=== PATIENT | female | born 1985 ===

== ENCOUNTER 2019-03-01 18:04 | Emergency (ER) | payer SELFPAY ==
[2019-03-01 18:04] VITALS: BMI 41.1
--- NOTE | 2019-03-01 20:30 | ED PDOC ---
HPI: Female Pain Time Seen by Provider: 03/01/19 20:06 Chief Complaint (Nursing): Female Genitourinary Chief Complaint (Provider): : vaginal bleeding, pain History Per: Patient History/Exam Limitations: no limitations Onset/Duration Of Symptoms: Hrs (4) Current Symptoms Are (Timing): Still Present Quality Of Discomfort: "Pain" Additional Complaint(s): 33 y/o female, approximately 12 weeks , presents for evaluation of vagin al bleeding x 4 hours. Patient reports diarrhea with subjective fevers last night; which since improved. Patient states she noticed blood on tissue after urinating around 16:00 which continued up until now. Associated suprapubic pain. Denies fever, nausea/vomiting, chest pain, shortness of breath, palpitations, urinary symptoms. Last Menstral Period: 11/20/18 : 4 Para: 3 Miscarriage: 0 Past Medical History Reviewed: Historical Data, Nursing Documentation, Vital Signs Vital Signs: Last Vital Signs Temp 98.6 F 03/01/19 18:24 Pulse 82 03/01/19 18:24 Resp 18 03/01/19 18:24 BP 130/81 03/01/19 18:24 Pulse Ox 99 03/01/19 18:24 - Medical History PMH: No Chronic Diseases Denies: Depression, Diabetes, HTN - Surgical History Surgical History: - Family History Family History: States: Unknown Family Hx - Immunization History Hx Tetanus Toxoid Vaccination: No Hx Influenza Vaccination: No Hx Pneumococcal Vaccination: No - Home Medications Home Medications: Ambulatory Orders Medication Instructions Recorded Ibuprofen [Motrin Tab] 600 mg PO Q4 PRN #30 tab 07/17/17 oxyCODONE/Acetaminophen [Percocet 1 tab PO Q6H PRN #20 tab 07/17/17 5/325 mg Tab] - Allergies Allergies/Adverse Reactions: Allergies Allergy/AdvReac Type Severity Reaction Status Date / Time No Known Allergies Allergy Verified 03/01/19 18:24 Review of Systems ROS Statement: Except As Marked, All Systems Reviewed And Found Negative Genitourinary Female: Positive for: Vaginal Bleeding, Pelvic Pain Physical Exam - Reviewed Nursing Documentation Reviewed: Yes Vital Signs Reviewed: Yes - Physical Exam Appears: Positive for: Well, Non-toxic, No Acute Distress Head Exam: Positive for: ATRAUMATIC, NORMAL INSPECTION, NORMOCEPHALIC Skin: Positive for: Normal Color Eye Exam: Positive for: Normal appearance ENT: Positive for: Normal ENT Inspection Cardiovascular/Chest: Positive for: Regular Rate, Rhythm Respiratory: Positive for: Normal Breath Sounds Gastrointestinal/Abdominal: Positive for: Bowel Sounds, Soft, Tenderness (suprapubic) Pelvic Exam: Positive for: External Exam Normal, No Cerv. Motion Tender, Active Bleeding (+ large clots), Other (exam trim machine operator Aisha Urena RN). Negative for: Tender Adnexa, Tender Uterus Back: Positive for: Normal Inspection Extremity: Positive for: Normal ROM Neurological/Psych: Positive for: Awake, Alert, Oriented (x3) - Laboratory Results Result Diagrams: 03/01/19 20:52 03/01/19 20:52 - ECG O2 Sat by Pulse Oximetry: 99 - Progress ED Course And Treament: -upreg -udip -cbc -cmp -beta hcg -OB TV u/s -PO tylenol 21:35 RN called public relations writer to bathroom; patient actively passing fetus. Patient states pain has now improved History Pain/vaginal bleeding. Comparison None available. Findings Uterus No gestational sac, yolk sac, pole or cardiac activity. Uterus measures 16.4 x 6.5 x 9.4 cm. No mass. Cervix Long and closed measuring 4.7 cm. No cervical abnormality seen. Right Ovary Not seen. Left Ovary Measures 4.4 x 3 x 5.9 cm. No mass. Normal flow. Cyst measures 4 x 2.3 x 4.1 cm. Free Fluid None. Other Findings None. Impression 1. No evidence of IUP. 2. Left ovarian cyst. Patient resting comfortably on re-eval; states pain improved Patient educated on findings, discharged with instructions to follow up with Greenskeeper Supervisor within 1 week Advised Tylenol/Ibuprofen PRN pain Return precautions given Disposition - Clinical Impression Clinical Impression: Left ovarian cyst, Miscarriage - Patient ED Disposition Is Patient to be Admitted: No Counseled Patient/Family Regarding: Studies Performed, Diagnosis, Need For Followup - Disposition Disposition: Routine/Home Disposition Time: 23:20 Condition: STABLE Instructions: Dealing With Miscarriage, Miscarriage, Ovarian Cysts Forms: [facility] ED School/Work Excuse
[2019-03-01 20:57] LABS: BASO % 0.3 % (0.0-2.0); EOS # 0.2 K/uL (0.0-0.7); EOS % 1.5 % (0.0-4.0); HEMOGLOBIN 12.1 g/dL (12.0-16.0); LYMPH # 3.2 K/uL (1.0-4.3); LYMPH % 27.1 % (20.0-40.0); MEAN CORPUSCULAR HEMOGLOBIN 26.7 pg (27.0-31.0); MEAN CORPUSCULAR HGB CONC 32.6 g/dL (33.0-37.0); MEAN PLATELET VOLUME 8.5 fl (7.2-11.7); MONO % 8.3 % (0.0-10.0); NEUT # 7.5 K/uL (1.8-7.0); NEUT % 62.8 % (50.0-75.0); RBC 4.54 Mil/uL (3.80-5.20); RED CELL DISTRIBUTION WIDTH 14.6 % (11.5-14.5); WHITE BLOOD COUNT 11.9 K/uL (4.8-10.8)
[2019-03-01] MEDS ORDERED: Sodium Chloride 0.9% 1,000 ML IV STA (21:00)
[2019-03-01 21:10] LABS: ALBUMIN 3.9 g/dL (3.5-5.0); ALT/SGPT 18 U/L (9-52); AST/SGOT 20 U/L (14-36); BLOOD UREA NITROGEN 6 mg/dl (7-17); CALCIUM 8.9 mg/dL (8.4-10.2); GFR NON-AFRICAN AMERICAN > 60
[2019-03-01 22:56] VITALS: RESP 16
[2019-03-01 23:50] VITALS: BP 126/75; PULSE 78; TEMP 98.5; O2SAT 100
--- NOTE | 2019-03-02 12:03 | US ---
Date of service: 03/01/2019 HISTORY: : bleeding, pain COMPARISON: None available. TECHNIQUE: FINDINGS: UTERUS: Measures 16.4 x 6.5 x 9.4 cm. Normal in size and appearance. No fibroid or other mass lesion seen. ENDOMETRIUM: The central endometrial echo complex is heterogeneous. There is evidence of homogeneously isoechoic structure along the anterior wall. CERVIX: No cervical abnormality identified. RIGHT OVARY: Not visualized. LEFT OVARY: Measures 4.4 x 3.0 x 5.9 cm. No solid mass. Normal flow. There is a 4.0 x 2.3 x 4.1 cm simple cyst. FREE FLUID: No significant free fluid noted. OTHER FINDINGS: None. IMPRESSION: 1. No evidence of intrauterine gestational sac. Heterogeneous central endometrial echo complex and presumable placenta along the anterior wall. Clinical follow-up is advised. 2. 4.1 cm simple cyst in the left ovary. A preliminary report was provided by [employer] The final report is tagged to the PA review folder.
== END 2019-03-01 23:50 | disposition home or self-care (01) ==
LOC: H.ER 18:04
DX: O03.9 Complete or unspecified spontaneous abortion without complication (principal); Z3A.13 13 weeks gestation of pregnancy; N83.202 Unspecified ovarian cyst, left side
CPT/HCPCS: 76817; 80053; 81025; 84702; 85025; 88305; 96360; 99284; J7030

== ENCOUNTER 2019-03-04 01:33 | Emergency (ER) | payer SELFPAY ==
[2019-03-04 01:33] VITALS: BMI 41.1
[2019-03-04 01:42] VITALS: BP 139/85; PULSE 97; RESP 16; TEMP 98.5; O2SAT 100
[2019-03-04 03:02] LABS: BASO % 0.4 % (0.0-2.0); EOS # 0.1 K/uL (0.0-0.7); HEMOGLOBIN 10.3 g/dL (12.0-16.0); LYMPH # 1.6 K/uL (1.0-4.3); LYMPH % 17.6 % (20.0-40.0); MEAN CELL VOLUME 81.8 fl (81.0-99.0); MEAN CORPUSCULAR HEMOGLOBIN 27.6 pg (27.0-31.0); MEAN CORPUSCULAR HGB CONC 33.7 g/dL (33.0-37.0); MEAN PLATELET VOLUME 8.3 fl (7.2-11.7); MONO # 0.6 K/uL (0.0-0.8); MONO % 6.7 % (0.0-10.0); NEUT # 6.7 K/uL (1.8-7.0); NEUT % 74.3 % (50.0-75.0); NRBC % 0.1 % (0.0-0.0); RBC 3.72 Mil/uL (3.80-5.20); RED CELL DISTRIBUTION WIDTH 14.2 % (11.5-14.5); WHITE BLOOD COUNT 9.1 K/uL (4.8-10.8)
--- NOTE | 2019-03-04 03:12 | ED PDOC ---
HPI: Psych/Substance Abuse Time Seen by Provider: 03/04/19 01:44 Chief Complaint (Nursing): Psychiatric Evaluation Chief Complaint (Provider): Anxiety, depression History Per: Patient, Family () History/Exam Limitations: no limitations Onset/Duration Of Symptoms: Days (2) Current Symptoms Are (Timing): Still Present Associated Symptoms: Anxiety, Depression. denies: Suicidal Thoughts, Suicidal Plan Additional Complaint(s): 33yo female, with no past medical history, brought to ER by due to anxiety and depression for the past 2 days. Patient was diagnosed with a spontaneous miscarriage 2 days ago, and since then she feels like she has been unable to sleep, has been increasingly depressed. Per , patient is ac utely panicked, and felt as if "in alternate reality." Patient otherwise denies any suicidal, homicidal ideation, no hallucinations as well. No other medical complaints. PMD: None provided Past Medical History Reviewed: Historical Data, Nursing Documentation, Vital Signs Vital Signs: Last Vital Signs Temp 98.5 F 03/04/19 01:37 Pulse 97 H 03/04/19 01:37 Resp 16 03/04/19 01:37 BP 139/85 03/04/19 01:37 Pulse Ox 100 03/04/19 01:37 - Medical History PMH: No Chronic Diseases Denies: Depression, Diabetes, HTN - Surgical History Surgical History: - Family History Family History: States: No Known Family Hx - Social History Current smoker - smoking cessation education provided: No Alcohol: None Drugs: Denies - Immunization History Hx Tetanus Toxoid Vaccination: No Hx Influenza Vaccination: No Hx Pneumococcal Vaccination: No - Home Medications Home Medications: Ambulatory Orders Medication Instructions Recorded Ibuprofen [Motrin Tab] 600 mg PO Q4 PRN #30 tab 07/17/17 oxyCODONE/Acetaminophen [Percocet 1 tab PO Q6H PRN #20 tab 07/17/17 5/325 mg Tab] - Allergies Allergies/Adverse Reactions: Allergies Allergy/AdvReac Type Severity Reaction Status Date / Time No Known Allergies Allergy Verified 03/01/19 18:24 Review of Systems ROS Statement: Except As Marked, All Systems Reviewed And Found Negative Psych: Positive for: Anxiety, Depression. Negative for: Suicidal ideation Physical Exam - Reviewed Nursing Documentation Reviewed: Yes Vital Signs Reviewed: Yes - Physical Exam Appears: Positive for: Non-toxic, No Acute Distress Head Exam: Positive for: ATRAUMATIC, NORMAL INSPECTION, NORMOCEPHALIC Skin: Positive for: Normal Color Eye Exam: Positive for: Normal appearance, EOMI, PERRL Neck: Positive for: Supple Cardiovascular/Chest: Positive for: Regular Rate, Rhythm. Negative for: Tachycardia Respiratory: Positive for: Normal Breath Sounds. Negative for: Respiratory Distress Gastrointestinal/Abdominal: Positive for: Soft Back: Positive for: Normal Inspection Extremity: Positive for: Normal ROM. Negative for: Pedal Edema Neurological/Psych: Positive for: Awake, Alert, Mood/Affect (anxious affect). Negative for: Motor/Sensory Deficits - Laboratory Results Result Diagrams: 03/04/19 02:58 03/04/19 02:58 - ECG O2 Sat by Pulse Oximetry: 100 (RA) Pulse Ox Interpretation: Normal Medical Decision Making Medical Decision Making: Impression: 33yo with acute anxiety and depression Plan: -- Labs -- UDip -- Crisis evaluation 0421 Labs reviewed, no clinically significant abnormalities. Beta HCG trending down from 03/01; [id number] -> [id number] Patient seen and evaluated by casino worker, cleared for discharge. Diagnosis: adjustment disorder Scribe Attestation: Documented by Shima Gómez, acting as a scribe for Steve Wiley MD. Provider Scribe Attestation: All medical record entries made by the Scribe were at my direction and personally dictated by me. I have reviewed the chart and agree that the record accurately reflects my personal performance of the history, physical exam, medical decision making, and the department course for this patient. I have also personally directed, reviewed, and agree with the discharge instructions and disposition. Disposition - Clinical Impression Clinical Impression: Adjustment disorder - Disposition Disposition: Routine/Home Disposition Time: 04:21 Condition: STABLE Instructions: Adjustment Disorder Forms: [employer] (Mongolian) Print Language: [place]AST [place]
[2019-03-04 03:52] LABS: ALB/GLOB RATIO 1.1 (1.0-2.1); ALBUMIN 3.4 g/dL (3.5-5.0); ALT/SGPT 26 U/L (9-52); AST/SGOT 14 U/L (14-36); BLOOD UREA NITROGEN 6 mg/dl (7-17); CALCIUM 8.8 mg/dL (8.4-10.2); GFR NON-AFRICAN AMERICAN > 60
== END 2019-03-04 04:05 | disposition home or self-care (01) ==
LOC: H.ER 01:33
DX: F43.22 Adjustment disorder with anxiety (principal); F32.9 Major depressive disorder, single episode, unspecified